=== PATIENT | female | born 1965 | race Caucasian/White ===

== ENCOUNTER 2018-10-04 07:44 | Emergency (ER) | payer OTHER ==
[~2018-10-04] VITALS: Ht 162.6 cm; Wt 41.7 kg
[2018-10-04] MEDS ORDERED: SODIUM CHLORIDE 0.9% 1,000 ML IV ONE (08:31)
[2018-10-04] MEDS ORDERED: SODIUM CHLORIDE 0.9% 500 ML IV ONE (08:31)
[2018-10-04] MEDS ORDERED: ONDANSETRON HCL 4 MG/2 ML VIAL IV ONE (09:30)
[2018-10-04 09:45] LABS: Hematocrit 25.3 % (36.0-46.0); Mean Corpuscular Hemoglobin 26.9 pg (28.0-32.0); Mean Corpuscular Hgb Conc. 31.8 g/dL (32.0-36.0); Mean Corpuscular Volume 84.5 fL (80.0-100.0); Platelet Count (auto) 341 10^3/uL (140-450); Red Blood Cells 2.99 10^6/uL (4.0-5.20); Red Cell Distribution Width 17.1 % (11.8-14.3); White Blood Cell 24.3 10^3/uL (4.4-10.8)
[2018-10-04 09:46] LABS: Basophils % (manual) 0 (0.0-2.0); Blast Cells 0; Eosinophils % (manual) 0 (0-7); Promyelocytes % 0; Reactive Lymphocytes 0
[2018-10-04 09:57] LABS: INR 1.13 (0.9-1.15); Partial Thromboplastin Time 29.6 sec (23.64-32.05)
[2018-10-04 10:04] LABS: Albumin 1.6 g/dL (3.4-5.0); BUN/Creatinine Ratio 38.2; Calcium 7.1 mg/dL (8.5-10.1); Magnesium 2.1 mg/dL (1.6-2.6); Potassium 3.6 mmol/L (3.5-5.1)
[2018-10-04 10:07] LABS: Bilirubin, Total 0.3 mg/dL (0.2-1.0); Total Protein 4.2 g/dL (6.4-8.2)
[2018-10-04] MEDS ORDERED: NOREPINEPHRINE 8 MG/250ML KIT 250 ML IV ONE (10:42)
[2018-10-04] MEDS ORDERED: NOREPINEPHRINE 8 MG/250ML KIT 250 ML IV SCH (10:45)
[2018-10-04 11:25] LABS: Band Neutrophils % (manual) 10; Lymphocytes % (manual) 7 (10.0-50.0); Metamyelocytes % 1; Monocytes % (manual) 3 (0-12); Myelocytes % 2
[2018-10-04] MEDS ORDERED: LORazepam 2MG/ML-1ML VIAL ONE (11:45)
[2018-10-04] MEDS ORDERED: MORPHINE SULF INJ 2 MG/ML SYRINGE 1ML ONE (11:46)
[2018-10-04] MEDS ORDERED: LORazepam 2MG/ML-1ML VIAL IV ONE (12:00)
[2018-10-04] MEDS ORDERED: MORPHINE SULF INJ 2 MG/ML SYRINGE 1ML IV ONE (12:00)
[2018-10-04 12:02] VITALS: BP 0/0
== END 2018-10-04 12:02 | disposition expired ==
LOC: EDBD 07:44 → ER 07:47
DX: K92.2 Gastrointestinal hemorrhage, unspecified (principal); I46.9 Cardiac arrest, cause unspecified; C16.9 Malignant neoplasm of stomach, unspecified; C80.0 Disseminated malignant neoplasm, unspecified; R73.9 Hyperglycemia, unspecified; D62 Acute posthemorrhagic anemia; D69.6 Thrombocytopenia, unspecified; E43 Unspecified severe protein-calorie malnutrition; Z68.1 Body mass index [BMI] 19.9 or less, adult; Z88.0 Allergy status to penicillin
CPT/HCPCS: 31500; 36415; 36600; 71045; 74176; 80053; 82805; 83690; 83735; 85007; 85027; 85384; 85610; 85730; 86850; 86900; 86901; 86920; 92950; 93005; 94761; 96361; 96374; 96375; 99291; J2060; J2405; P9016; 94002